=== PATIENT | male | born 1995 | race Caucasian/White ===

== ENCOUNTER 2017-04-04 22:11 | Emergency (ER) | payer SELFPAY ==
[~2017-04-04 22:11] MED LIST: BUSP10 PO; IBUP600 PO; ORPH100T PO; TRAZ300T2 PO
[2017-04-04 22:21] VITALS: BP 122/56; PULSE 79; TEMP 98.4
[2017-04-04] MEDS ORDERED: TRAZ300T2 PO (22:28)
[2017-04-04] MEDS ORDERED: BUSP10TA PO (22:28)
[2017-04-04 23:23] LABS: AMPHETAMINE, URINE POS (NEG); BARBITURATES, URINE NEG (NEG); COCAINE, URINE NEG (NEG)
[2017-04-04 23:27] LABS: AUTOMATED NEUTROPHIL # 3.1 TH/MM3 (1.8-7.7); BASOPHIL % 0.5 % (0.0-2.0); EOSINOPHIL # 0.2 TH/MM3 (0-0.4); HEMATOCRIT 36.6 % (39.0-51.0); HEMO FLAGS DIFF FINAL; LYMPHOCYTE # 1.6 TH/MM3 (1.0-4.8); MEAN CELL VOLUME 82.9 FL (80.0-100.0); MEAN CORPUSCULAR HEMOGLOBIN 28.8 PG (27.0-34.0); MEAN CORPUSCULAR HGB CONC 34.8 % (32.0-36.0); MONO % 10.3 % (0.0-8.0); NEUT % 56.2 % (16.0-70.0); PLATELET COUNT 167 TH/MM3 (150-450); RED BLOOD COUNT 4.42 MIL/MM3 (4.50-5.90); RED CELL DISTRIBUTION WIDTH 14.1 % (11.6-17.2); WHITE BLOOD COUNT 5.5 TH/MM3 (4.0-11.0)
--- NOTE | 2017-04-04 23:31 | PD ---
HPI Chief Complaint: Psychiatric Symptoms Time Seen by Provider: 22:15 Travel History International Travel<30 days: No Contact w/Intl Traveler<30days: No Traveled to known affect area: No History of Present Illness HPI Patient is a 22-year-old male brought into the emergency Department under [place] act to suicidal ideations. Per the [place]jo act report patient states that he has nothing to live for and wanted to kill himself. Patient admits to having suicidal ideations, he states he's been feeling this way for over a week. He was recently evicted from his home last Monday. 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 He was at [facility] for rehabilitation in the past, he was clean for approximately one year and relapsed 3 months ago. Patient admits to using IV Dilaudid. He also endorses tobacco and alcohol use. He denies any previous suicide attempt. [facility] Past Medical History Medical History: Denies Significant Hx Anxiety: Yes Past Surgical History Surgical History: No Previous Surgery Social History Alcohol Use: Yes Tobacco Use: Yes Substance Use: Yes (iv dilaudid) Allergies-Medications (Allergen,Severity, Reaction): Coded Allergies: No Known Allergies (Unverified , 04/04/17) Reported Meds & Prescriptions Reported Meds & Active Scripts Active Reported Trazodone (Trazodone HCl) 300 Mg Tab 300 Mg PO HS Buspirone (Buspirone HCl) 10 Mg Tab 10 Mg PO DAILY Review of Systems Except as stated in HPI: all other systems reviewed are Neg Psychiatric: Positive: Depression, Suicidal Ideations, Substance Abuse Physical Exam Narrative GENERAL: Well developed, well-nourished, alert male. Resting comfortably in no acute distress. SKIN: Focused skin assessment warm/dry. HEAD: Atraumatic. Normocephalic. EYES: Pupils equal and round. No scleral icterus. No injection or drainage. ENT: No nasal bleeding or discharge. Mucous membranes pink and moist. NECK: Trachea midline. No JVD. CARDIOVASCULAR: Regular rate and rhythm. No murmur appreciated. RESPIRATORY: No accessory muscle use. Clear to auscultation. Breath sounds equal bilaterally. GASTROINTESTINAL: Abdomen soft, non-tender, nondistended. Hepatic and splenic margins not palpable. MUSCULOSKELETAL: No obvious deformities. No clubbing. No cyanosis. No edema. NEUROLOGICAL: Awake and alert. No obvious cranial nerve deficits. Motor grossly within normal limits. Normal speech. PSYCHIATRIC: Depressed mood and affect; insight and judgment normal. Data Data Last Documented VS Vital Signs Date Time Temp Pulse Resp B/P Pulse Ox O2 Delivery O2 Flow Rate FiO2 04/04/17 22:21 98.4 79 122/56 Orders Complete Blood Count With Diff (04/04/17 22:16) Comprehensive Metabolic Panel (04/04/17 22:16) Psych Screen (04/04/17 22:16) Drug Screen, Random Urine (04/04/17 22:16) Alcohol (Ethanol) (04/04/17 22:16) Salicylates (Aspirin) (04/04/17 22:16) Tylenol (Acetaminophen) (04/04/17 22:16) Potassium Chloride (Kcl) (04/05/17 00:00) Labs Laboratory Tests Test 04/04/17 22:45 White Blood Count 5.5 TH/MM3 Red Blood Count 4.42 MIL/MM3 Hemoglobin 12.7 GM/DL Hematocrit 36.6 % Mean Corpuscular Volume 82.9 FL Mean Corpuscular Hemoglobin 28.8 PG Mean Corpuscular Hemoglobin 34.8 % Concent Red Cell Distribution Width 14.1 % Platelet Count 167 TH/MM3 Mean Platelet Volume 8.9 FL Neutrophils (%) (Auto) 56.2 % Lymphocytes (%) (Auto) 30.0 % Monocytes (%) (Auto) 10.3 % Eosinophils (%) (Auto) 3.0 % Basophils (%) (Auto) 0.5 % Neutrophils # (Auto) 3.1 TH/MM3 Lymphocytes # (Auto) 1.6 TH/MM3 Monocytes # (Auto) 0.6 TH/MM3 Eosinophils # (Auto) 0.2 TH/MM3 Basophils # (Auto) 0.0 TH/MM3 CBC Comment DIFF FINAL Differential Comment Sodium Level 139 MEQ/L Potassium Level 3.4 MEQ/L Chloride Level 105 MEQ/L Carbon Dioxide Level 25.9 MEQ/L Anion Gap 8 MEQ/L Blood Urea Nitrogen 16 MG/DL Creatinine 0.83 MG/DL Estimat Glomerular Filtration 115 ML/MIN Rate Random Glucose 104 MG/DL Calcium Level 9.1 MG/DL Total Bilirubin 0.5 MG/DL Aspartate Amino Transf 22 U/L (AST/SGOT) Alanine Aminotransferase 22 U/L (ALT/SGPT) Alkaline Phosphatase 84 U/L Total Protein 7.4 GM/DL Albumin 3.9 GM/DL Salicylates Level 3.0 MG/DL Urine Opiates Screen NEG Acetaminophen Level LESS THAN 2.0 MCG/ML Urine Barbiturates Screen NEG Urine Amphetamines Screen POS Urine Benzodiazepines Screen NEG Urine Cocaine Screen NEG Urine Cannabinoids Screen POS Ethyl Alcohol Level 3 MG/DL MDM Medical Decision Making Medical Screen Exam Complete: Yes Emergency Medical Condition: Yes Interpretation(s) Vital Signs Date Time Temp Pulse Resp B/P Pulse Ox O2 Delivery O2 Flow Rate FiO2 04/04/17 22:21 98.4 79 122/56 Differential Diagnosis Substance abuse versus mood disorder versus depression versus suicidal ideations versus other Narrative Course Patient is a 22-year-old male presenting to the emergency department for psychiatric evaluation under [place] act due to suicidal ideations. Patient admits to having suicidal ideations, reports dependence on narcotics as well as recent increasing life stressors. Mental health screening discussed with the patient. Psychiatric screen ordered. CBC is unremarkable, chemistry with a potassium of 3.4, oral replacement ordered. Urine drug screen is positive for amphetamines and marijuana. Patient is medically clear for psychiatric evaluation. Diagnosis Primary Impression: Medical clearance for psychiatric admission Additional Impressions: Substance abuse Suicidal ideations Condition: Stable Ubaldo,Jackie Hall LAW SECRETARY Apr 04, 2017 23:31
[2017-04-04 23:41] LABS: ALT (GPT) 22 U/L (12-78); ANION GAP 8 MEQ/L (5-15); AST (GOT) 22 U/L (15-37); BICARBONATE 25.9 MEQ/L (21.0-32.0); BLOOD UREA NITROGEN 16 MG/DL (7-18); CHLORIDE 105 MEQ/L (98-107); GLOMERULAR FILTRATION RATE 115 ML/MIN (>89); POTASSIUM 3.4 MEQ/L (3.5-5.1); SODIUM (NA) 139 MEQ/L (136-145)
[2017-04-04 23:44] LABS: ACETAMINOPHEN LESS THAN 2.0 MCG/ML (10.0-30.0); ALKALINE PHOSPHATASE 84 U/L (45-117); TOTAL BILIRUBIN ADULT 0.5 MG/DL (0.2-1.0)
[2017-04-05] MEDS ORDERED: POTASSIUM CHLORIDE 10 MEQ CONTROLLED RELEASE TAB PO ONE
[2017-04-05 01:22] VITALS: BP 101/66; PULSE 58; RESP 18; TEMP 98.1; O2SAT 97
[2017-04-05 02:17] VITALS: BP 103/52; PULSE 64; RESP 18; TEMP 98.8; O2SAT 97
[2017-04-05 06:16] VITALS: BP 94/50; PULSE 53; RESP 18; TEMP 98.5; O2SAT 100
== END 2017-04-05 12:16 | disposition home or self-care (01) ==
LOC: NEPD 22:11 → NEPJ 04-05 12:16
DX: R45.851 Suicidal ideations (principal); F19.10 Other psychoactive substance abuse, uncomplicated; Z72.0 Tobacco use; F41.9 Anxiety disorder, unspecified
CPT/HCPCS: 80053; 80307; 85025; 99284